=== PATIENT | female | born 1960 | race Caucasian/White ===

== ENCOUNTER → 2016-12-28 | Outpatient (CLI) | payer OTHER ==
[~2016-12-28] MED LIST: ASPI-496 PO; CALC0.25 PO; CYAN10005 PO; DIME240C PO; ESTR1TAB17 PO; GABA300C10 PO
== END ==
LOC: STAR 14:13
PROVIDERS: ATTEND Otolaryngology
DX: Z02.9 Encounter for administrative examinations, unspecified (principal)

== ENCOUNTER 2017-01-05 05:54 | Day surgery (SDC) | payer OTHER ==
[2016-12-28 14:41] VITALS: BP 111/75
[~2017-01-05] VITALS: Ht 160 cm; Wt 68.2 kg
[2017-01-05] MEDS ORDERED: LACTATED RINGERS 1,000 ML IV SCH (06:19)
[2017-01-05] MEDS ORDERED: LIDOCAINE 1%, 2ML ONE (06:27)
[2017-01-05] MEDS ORDERED: LIDOCAINE 1%, 2ML SQ PRN (06:30)
[2017-01-05] MEDS ORDERED: MIDAZOLAM 1 MG/ML, 2ML ONE (06:44)
[2017-01-05] MEDS ORDERED: FENTANYL PF 100 MCG/2ML ONE ×3 (06:44→08:26)
[2017-01-05] MEDS ORDERED: OXYMETAZOLINE NASAL SPRAY 0.05%, 15ML ONE ×2 (06:54→07:51)
[2017-01-05] MEDS ORDERED: ONDANSETRON 2MG/ML, 2ML IVPush PRN (07:30)
[2017-01-05] MEDS ORDERED: PROMETHAZINE 25 MG/ML, 1ML IV PRN (07:30)
[2017-01-05] MEDS ORDERED: OXYcodone 5 MG/5 ML ORAL.SOL UDC PO PRN (07:30)
[2017-01-05] MEDS ORDERED: HYDROmorphone 1 MG/ML, 1ML IV PRN (07:30)
[2017-01-05] MEDS ORDERED: ACETAMINOPHEN 325 MG TABLET PO PRN (07:30)
[2017-01-05] MEDS ORDERED: FENTANYL PF 100 MCG/2ML IV PRN (07:30)
[2017-01-05] MEDS ORDERED: DEXAMETHASONE 4 MG/ML, 5ML ONE (07:37)
[2017-01-05] MEDS ORDERED: ROCURONIUM 10 MG/ML ONE (07:37)
[2017-01-05] MEDS ORDERED: NEOSTIGMINE 1 MG/ML, 10ML ONE (07:37)
[2017-01-05] MEDS ORDERED: GLYCOPYRROLATE 0.2MG/1ML ONE (07:37)
[2017-01-05] MEDS ORDERED: PROPOFOL 10 MG/ML, 20ML ONE (07:37)
[2017-01-05] MEDS ORDERED: LEVOFLOXACIN/PMX 500MG/100ML 100 ML ONE (07:48)
[2017-01-05] MEDS ORDERED: OXYcodone 5 MG/5 ML ORAL.SOL UDC ONE ×2 (08:26→12:06)
[2017-01-05] MEDS ORDERED: OXYcodone/APAP 5/325MG TABLET PO PRN (12:00)
[2017-01-05] MEDS ORDERED: ACETAMINOPHEN 650 MG/20.3 ML UDC ONE (12:07)
== END 2017-01-05 12:40 ==
LOC: OUT 05:54
PROVIDERS: ATTEND Otolaryngology
DX: J31.1 Chronic nasopharyngitis (principal); J31.2 Chronic pharyngitis; Z79.82 Long term (current) use of aspirin; Z88.1 Allergy status to other antibiotic agents; Z88.5 Allergy status to narcotic agent
CPT/HCPCS: 42831; 87070; 87075; 87077; 87102; 87205; 88305; J1100; J1956; J2250; J2704; J2710; J3010; J3490; J7120; 87186

== ENCOUNTER → 2017-03-04 | Outpatient (CLI) | payer OTHER | END | disposition home or self-care (01) | LOC: RAD 07:48 | PROVIDERS: ATTEND Internal Medicine Infectious Disease | DX: Z45.2 Encounter for adjustment and management of vascular access device (principal); Z79.2 Long term (current) use of antibiotics | CPT/HCPCS: 36569; 76937; 77001; C1751 ==

== ENCOUNTER → 2020-04-22 | Outpatient (CLI) | payer OTHER ==
[~2020-04-22] MED LIST changes: +CYAN-27 PO; -CYAN10005 PO
== END | disposition home or self-care (01) ==
LOC: CFH 13:36 → EDBD 14:15
PROVIDERS: ATTEND Obstetrics & Gynecology
DX: R92.2 Inconclusive mammogram (principal); N63.20 Unspecified lump in the left breast, unspecified quadrant; N63.10 Unspecified lump in the right breast, unspecified quadrant
CPT/HCPCS: 77066; G0279